=== PATIENT | female | born 1970 | race Caucasian/White ===

== ENCOUNTER 2017-01-16 10:18 | Day surgery (SDC) | payer OTHER ==
[~2017-01-16 10:18] MED LIST: Lactated Ringers 1,000 ML IV SCH
--- NOTE | 2017-01-16 10:46 | PCM.PREANE ---
Preanesthetic Assessment - Anesthesia/Transfusion/Family Hx Anesthesia History: Prior Anesthesia Without Reaction Family History of Anesthesia Reaction: No Transfusion History: Prior Transfusion Without Reaction - Review of Systems General: No Symptoms Pulmonary: No Symptoms Cardiovascular: No Symptoms Neurological: No Symptoms Other: Reports: None - Physical Assessment NPO Status Date: 01/15/17 Height: 1.63 m Weight: 73.028 kg ASA Class: 2 Mental Status: Alert & Oriented x3 Airway Class: Mallampati = 2 Dentition: Reports: Normal Dentition ROM/Head Extension: Full Lungs: Clear to Auscultation, Normal Respiratory Effort Cardiovascular: Regular Rate, Regular Rhythm - Allergies Allergies/Adverse Reactions: Allergies Allergy/AdvReac Type Severity Reaction Status Date / Time adhesive tape Allergy Blisters Verified 02/28/16 14:55 - Anesthesia Plan Pre-Op Medication Ordered: None - Acknowledgements Anesthesia Type Planned: MAC Pt an Appropriate Candidate for the Planned Anesthesia: Yes Alternatives and Risks of Anesthesia Discussed w Pt/Guardian: Yes Pt/Guardian Understands and Agrees with Anesthesia Plan: Yes Additional Comments: pmh: smoker, is s/p gastric bypass and has stent in gastric outlet. 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: Musculoskeletal History: Reports: Arthritis, Back Pain, Chronic, Fracture Neurological History: Reports: Migraines Psychiatric History: Reports: Anxiety Endocrine/Metabolic History: Reports: None Hematologic History: Reports: Anemia, Blood Transfusion(s) Immunologic History: Reports: None Oncologic (Cancer) History: Reports: None Dermatologic History: Reports: None - Past Surgical History Head Surgeries/Procedures: Reports: None GI Surgical History: Reports: Bariatric Procedure, Cholecystectomy, Other (See Below) Other GI Surgeries/Procedures: gastric bypass Female Surgical History: Reports: Breast Biopsy, Hysterectomy Other Female Surgeries/Procedures: breast lumpectomy x2, exp laparotomy with celestino S&O Musculoskeletal Surgical History: Reports: Carpal Tunnel Oncologic Surgical History: Reports: Lumpectomy - SUBSTANCE USE Smoking Status *Q: Current Every Day Smoker Tobacco Use Within Last Twelve Months: Cigarettes Second Hand Smoke Exposure: Yes Recreational Drug Use History: No - HOME MEDS Home Medications: Home Meds Amberene With Minerals & Antio 2 tab PO DAILY 01/12/17 [History] Multivits Min/Iron/FA/Herb#186 [Hair, Skin and Nails Caplet] 2 tab PO DAILY [History] rOPINIRole HCl [Requip] 1 mg PO BEDTIME 01/12/17 [History] - CURRENT (IN HOUSE) MEDS Current Meds: Current Medications Lactated Ringer's (Ringers, Lactated) 1,000 mls @ 125 mls/hr IV ASDIRECTED [facility]
[2017-01-16] MEDS ORDERED: Ondansetron 4 MG/2 ML SDV ONE (10:48)
[2017-01-16] MEDS ORDERED: Propofol 200 MG/20 ML SDV ONE (10:48)
[2017-01-16] MEDS ORDERED: Midazolam 1 MG/ML 2 ML SDV ONE (10:49)
[2017-01-16] MEDS ORDERED: fentaNYL 100 MCG/2 ML SDV ONE (10:49)
--- NOTE | 2017-01-16 11:25 | PCM.OPNOTE ---
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
--- NOTE | 2017-01-16 11:58 | PCM.POSTAN ---
POST ANESTHESIA ASSESSMENT - MENTAL STATUS Mental Status: Alert, Oriented - RESPIRATORY Respiratory Status: Respiratory Rate WNL, Airway Patent, O2 Saturation Stable - CARDIOVASCULAR CV Status: Pulse Rate WNL, Blood Pressure Stable - GASTROINTESTINAL GI Status: No Symptoms - POST OP HYDRATION Hydration Status: Adequate & Stable
--- NOTE | 2017-01-16 11:58 | PCM48HPAN ---
Post Anesthesia Note - EVALUATION WITHIN 48HRS OF ANESTHETIC Vital Signs in Normal Range: Yes Patient Participated in Evaluation: Yes Respiratory Function Stable: Yes Airway Patent: Yes Cardiovascular Function Stable: Yes Hydration Status Stable: Yes Pain Control Satisfactory: Yes Nausea and Vomiting Control Satisfactory: Yes Mental Status Recovered: Yes
[2017-01-16 12:04] VITALS: BP 117/79
--- NOTE | 2017-01-16 15:13 | OR ---
SURGEON: Ortiz Oviedo MD DATE OF PROCEDURE: 01/16/2017 PREOPERATIVE DIAGNOSIS: Persisting nausea and vomiting after gastric bypass 15 years ago. POSTOPERATIVE DIAGNOSIS: Acid reflux. PROCEDURE PERFORMED: Esophagogastroduodenoscopy with biopsy. COMPLICATIONS: None. FINDINGS: 1. The patient is easily sedated with HYPOID GEAR TESTER and Diprivan. The patient is soundly snoring. 2. Oropharynx and proximal esophagus are normal in appearance and no stricture, ulceration, or inflammation. Distal esophagus at GE junction, 36 cm, shows salmon color change, very mild, suggestive of mild acid reflux. There is no stomach rugae. The patient is status post gastric bypass and very small stomach pouch, and the gastrojejunostomy anastomosis is wide open. No stricture or stenosis. There is no ulcer or inflammation at the jejunum limb. The small gastric pouch does not seem to show any inflammation either. Biopsy was done at the gastrojejunostomy anastomosis #1 and biopsy done at the GE junction at 36 cm #2 and sucked out the air while scope pulling out. Has not seen any stricture, stenosis, or inflammation to explain the patient's persistent emesis. PROCEDURE IN DETAIL: The patient was taken to the endoscopy room and placed in supine position. Upon induction of mild general sedation, a well lubricated Olympus gastroscope was done, gently inserted above the tongue into the oropharynx down the esophagus into the stomach. During the procedure, the oropharynx is noted to be normal in appearance and proximal esophagus is free of disease, stricture, or inflammation. Distal esophagus, GE junction at 36, shows mild salmon color change consistent with acid reflux, but it is very mild. The patient has a very small stomach pouch and the patient is status post gastric bypass. The stomach pouch does not have any inflammation and no stomach rugae. The gastrojejunostomy anastomosis looked a little bit small, but is not stenotic. The scope can go through easily and the jejunal limb is free of disease. No inflammation. The scope retrieved back to the stomach pouch and biopsy done at the anastomosis boundary and biopsy done at the GE junction at 36, and sucked out the air while scope pulling out. Throughout the whole endoscopy exam, does not see any blood, ulcer, or inflammation and the gastrojejunostomy anastomosis looked a little bit small, but is not stenotic. The scope can go through easily. MARIE / HINA /[id number]
== END 2017-01-16 11:52 | disposition home or self-care (01) ==
LOC: MW.SDS 10:18
PROVIDERS: ATTEND Surgery
DX: K21.9 Gastro-esophageal reflux disease without esophagitis (principal); Z98.84 Bariatric surgery status; Z91.09 Other allergy status, other than to drugs and biological substances; Z98.890 Other specified postprocedural states; Z90.710 Acquired absence of both cervix and uterus; F17.210 Nicotine dependence, cigarettes, uncomplicated
CPT/HCPCS: 43239; J2250; J2405; J3010; J7120; 00740; 88305; J2704

== ENCOUNTER 2017-02-20 11:54 | Day surgery (SDC) | payer OTHER ==
[2017-02-20] MEDS ORDERED: Midazolam 1 MG/ML 2 ML SDV ONE (12:15)
[2017-02-20] MEDS ORDERED: Propofol 200 MG/20 ML SDV ONE (12:15)
[2017-02-20] MEDS ORDERED: Ondansetron 4 MG/2 ML SDV ONE (12:15)
[2017-02-20] MEDS ORDERED: fentaNYL 100 MCG/2 ML SDV ONE (12:15)
--- NOTE | 2017-02-20 12:52 | PCM.PREANE ---
Preanesthetic Assessment - Anesthesia/Transfusion/Family Hx Anesthesia History: Prior Anesthesia Without Reaction Family History of Anesthesia Reaction: No Transfusion History: Prior Transfusion Without Reaction Intubation History: Unknown - Review of Systems General: No Symptoms Pulmonary: No Symptoms Cardiovascular: No Symptoms Gastrointestinal: Abdominal Pain, Nausea, Vomiting Neurological: No Symptoms Other: Reports: None - Physical Assessment O2 Sat by Pulse Oximetry: 100 Respiratory Rate: 16 Vital Signs: Last Vital Signs Temp 36.7 C 02/20/17 12:14 Pulse 56 L 02/20/17 12:14 Resp 16 02/20/17 12:14 BP 143/75 H 02/20/17 12:14 Pulse Ox 100 02/20/17 12:14 Height: 1.63 m Weight: 68.039 kg ASA Class: 2 Mental Status: Alert & Oriented x3 Airway Class: Mallampati = 2 Dentition: Reports: Normal Dentition Thyro-Mental Finger Breadths: 3 Mouth Opening Finger Breadths: 3 ROM/Head Extension: Full Lungs: Clear to Auscultation, Normal Respiratory Effort Cardiovascular: Regular Rate, Regular Rhythm - Allergies Allergies/Adverse Reactions: Allergies Allergy/AdvReac Type Severity Reaction Status Date / Time adhesive tape Allergy Blisters Verified 02/28/16 14:55 - Blood Blood Available: No - Anesthesia Plan Pre-Op Medication Ordered: None - Acknowledgements Anesthesia Type Planned: MAC Pt an Appropriate Candidate for the Planned Anesthesia: Yes Alternatives and Risks of Anesthesia Discussed w Pt/Guardian: Yes Pt/Guardian Understands and Agrees with Anesthesia Plan: Yes PreAnesthesia Questionnaire - Past Health History Medical/Surgical History: Denies Medical/Surgical History HEENT History: Reports: None Cardiovascular History: Reports: Heart Murmur Respiratory History: Reports: None Gastrointestinal History: Reports: Irritable Bowel Syndrome Other Gastrointestinal History: presently having problems with abd pain and N&V Genitourinary History: Reports: None 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: Musculoskeletal History: Reports: Arthritis, Back Pain, Chronic, Fracture Other Musculoskeletal History: hx fx left wrist Neurological History: Reports: Migraines Psychiatric History: Reports: Anxiety Endocrine/Metabolic History: Reports: None Hematologic History: Reports: Anemia, Blood Transfusion(s) Immunologic History: Reports: None Oncologic (Cancer) History: Reports: None Dermatologic History: Reports: Psoriasis - Past Surgical History Head Surgeries/Procedures: Reports: None GI Surgical History: Reports: Bariatric Procedure, Cholecystectomy, Colonoscopy , EGD Other GI Surgeries/Procedures: gastric bypass Female Surgical History: Reports: Breast Biopsy, Hysterectomy, Salpingo- Oophorectomy Other Female Surgeries/Procedures: breast lumpectomy x2, exp laparotomy with celestino S&O Musculoskeletal Surgical History: Reports: Carpal Tunnel Oncologic Surgical History: Reports: Lumpectomy - SUBSTANCE USE Smoking Status *Q: Current Every Day Smoker Tobacco Use Within Last Twelve Months: Cigarettes Second Hand Smoke Exposure: Yes Recreational Drug Use History: No - HOME MEDS Home Medications: Home Meds . [No Known Home Meds] 02/16/17 [History] - CURRENT (IN HOUSE) MEDS Current Meds: Current Medications Lactated Ringer's (Ringers, Lactated) 1,000 mls @ 125 mls/hr IV ASDIRECTED [facility] Last Admin: 02/20/17 12:17 Dose: 125 mls/hr Discontinued Medications Fentanyl (Sublimaze) Confirm Administered Dose 100 mcg .ROUTE .STK-MED ONE Stop: 02/20/17 12:16 Lidocaine HCl (Xylocaine-Mpf 1%) Confirm Administered Dose 5 ml .ROUTE .STK-MED ONE Stop: 02/20/17 12:16 Midazolam HCl (Versed 1 Mg/Ml) Confirm Administered Dose 2 mg .ROUTE .STK-MED ONE Stop: 02/20/17 12:16 Ondansetron HCl (Zofran) Confirm Administered Dose 4 mg .ROUTE .STK-MED ONE Stop: 02/20/17 12:16 Propofol (Diprivan 20 Ml) Confirm Administered Dose 200 mg .ROUTE .STK-MED ONE Stop: 02/20/17 12:16
--- NOTE | 2017-02-20 14:16 | PCM.OPNOTE ---
- General Post-Op/Procedure Note Date of Surgery/Procedure: 02/20/17 Operative Procedure(s): colonoscopy w random bx Findings: see dict [id number] Pre Op Diagnosis: abd pain Post-Op Diagnosis: Same Anesthesia Technique: Moderate Sedation Primary Surgeon: Ortiz Oviedo Pathology: random colon bx Complications: None Condition: Good
[2017-02-20 14:46] VITALS: BP 119/82
--- NOTE | 2017-02-20 21:09 | OR ---
SURGEON: Ortiz Oviedo MD DATE OF PROCEDURE: 02/20/2017 PREOPERATIVE DIAGNOSIS: Abdominal pain. POSTOPERATIVE DIAGNOSIS: Hemorrhoids. PROCEDURE PERFORMED: Colonoscopy with random biopsy. COMPLICATIONS: None. DESCRIPTION OF PROCEDURE: The patient was taken to the endoscopy room. A time out was called, patient identified, and procedure identified. Diprivan was then administrated. Patient went from awake to sleep, hearing doctor talking or door closing is normal. Perineum inspection and digital examination were then performed. A well- lubricated colonoscope was gently inserted through the rectum, advanced past the rectosigmoid junction, the descending colon, splenic flexure, transverse colon, hepatic flexure, ascending colon, arrived to the cecum. Cecum was identified as dictated in the finding. Then the scope was carefully withdrawn while attention was paid to the mucosal surface for any abnormality. Air will be sucked out during the scope withdrawal. At the rectum, retroflexed to examine any rectal diseases, fistula or hemorrhoids. During mucosal examination, abnormality or polyp was noted; picture taken and biopsy performed. Patient tolerated procedure well. There were no intraoperative complications, and Dr. Oviedo was present throughout the whole procedure. FINDINGS: 1. The patient is easily sedated with SPOT MAN and Diprivan. The patient is soundly snoring. 2. The patient's bowel prep is average with large amount of liquid stool. No semi-formed stool. 3. The patient's colon was rather straight forward. Cecum indicated by ileocecal fold, one-to-one indentation, light emittance, and appendiceal orifice. Mucosa examined upon scope pulling out with some irrigation. The patient does not have diverticulosis, polyp, mass, growth, inflammation, stricture, ulceration, bleeding, AV malformation, none of those. The patient has internal hemorrhoid, external hemorrhoid, and random biopsy was done for abdominal pain. The patient would benefit from repeat colonoscopy 10 years from today if the biopsy pathology reveal otherwise or if clinically indicated otherwise. MARIE / HINA /[id number]
== END 2017-02-20 14:50 | disposition home or self-care (01) ==
LOC: MW.SDS 11:54
PROVIDERS: ATTEND Surgery
DX: K64.4 Residual hemorrhoidal skin tags (principal); K64.8 Other hemorrhoids; D64.9 Anemia, unspecified; K58.9 Irritable bowel syndrome, unspecified; M19.90 Unspecified osteoarthritis, unspecified site; F41.9 Anxiety disorder, unspecified; F17.210 Nicotine dependence, cigarettes, uncomplicated; Z91.048 Other nonmedicinal substance allergy status; Z79.899 Other long term (current) drug therapy; Z98.84 Bariatric surgery status; Z90.710 Acquired absence of both cervix and uterus; Z90.722 Acquired absence of ovaries, bilateral; Z90.79 Acquired absence of other genital organ(s); Z90.49 Acquired absence of other specified parts of digestive tract; Z98.890 Other specified postprocedural states
CPT/HCPCS: 45380; 88305; J2250; J2405; J3010; J7120; 00810; J2704